=== PATIENT | male | born 1975 | race Caucasian/White ===

== ENCOUNTER 2018-12-25 09:37 | Emergency (ER) | payer MEDICAID, OTHER ==
[~2018-12-25] VITALS: Ht 182.9 cm; Wt 159.1 kg
[2018-12-25] MEDS ORDERED: ketorolac tromethamine 15mg/ml inj. IV ONE (10:15)
--- NOTE | 2018-12-25 10:53 | NUR ---
AMBULATED TO BATHROOMFOR URINE SAMPLE
[2018-12-25 11:09] LABS: BASOPHILS # (AUTO) 0.1 X10'3 (0-0.2); EOSINOPHILS # (AUTO) 0.2 X10'3 (0-0.9); EOSINOPHILS % (AUTO) 1.6 % (0-6); HEMATOCRIT 46.5 % (42.0-52.0); HEMOGLOBIN 15.7 g/dl (14.0-17.9); LYMPHOCYTES # (AUTO) 2.2 X10'3 (1.1-4.8); LYMPHOCYTES % (AUTO) 18.5 % (21-51); MEAN CORPUSCULAR HEMOGLOBIN 30.9 PG (27.0-31.0); MEAN CORPUSCULAR HGB CONC 33.8 g/dL (33.0-36.5); MEAN CORPUSCULAR VOLUME 91.5 FL (78-98); MEAN PLATELET VOLUME 8.7 FL (7.4-10.4); MONOCYTES # (AUTO) 1.1 X10'3 (0-0.9); MONOCYTES % (AUTO) 9.2 % (2-12); NEUTROPHILS # (AUTO) 8.2 X10'3 (1.8-7.7); NEUTROPHILS % (AUTO) 69.7 % (42-75); PLATELET COUNT 217 X10'3 (140-440); RED BLOOD COUNT 5.08 X10'6 (4.70-6.10); RED CELL DISTRIBUTION WIDTH 13.7 % (11.5-14.5); WHITE BLOOD COUNT 11.7 X10'3 (4.5-11.0)
[2018-12-25 11:13] LABS: CLARITY,URINE SLIGHTLY CLOUDY (Clear); COLOR,URINE YELLOW (Yellow); GLUCOSE, URINE NEGATIVE (Neg); KETONES,URINE NEGATIVE (Neg); LEUKOCYTE ESTERASE ,URINE NEGATIVE (Neg); NITRITES, URINE NEGATIVE (Neg); OCCULT BLOOD,URINE SMALL (Neg); PH,URINE 6.5 (4.8-8.0); PROTEIN,URINE NEGATIVE (Neg); UROBILINOGEN,URINE 0.2 E.U/dL (0.2-1.0)
[2018-12-25 11:24] LABS: UA COLLECTION TYPE VOIDED
[2018-12-25 11:28] LABS: ALANINE AMINOTRANSFERASE 103 U/L (12-78); ALBUMIN 3.7 G/DL (3.4-5.0); ALBUMIN/GLOBULIN RATIO 0.9 (1.1-1.5); ALKALINE PHOSPHATASE 118 IU/L (46-116); ANION GAP 8 (8-16); ASPARTATE AMINO TRANSFERASE 58 U/L (10-37); BILIRUBIN,TOTAL 0.8 MG/DL (0.1-1.0); BLOOD UREA NITROGEN 13 MG/DL (7-18); CHLORIDE 107 MMOL/L (99-107); CREATININE 1.44 MG/DL (0.60-1.10); GLUCOSE 110 MG/DL (70-104); POTASSIUM 4.1 MMOL/L (3.5-5.1); SODIUM 141 MMOL/L (135-145); TOTAL CARBON DIOXIDE 26.2 MMOL/L (24-32); TOTAL PROTEIN 7.8 G/DL (6.4-8.2); eGFR 54 ML/MIN
[2018-12-25 11:40] LABS: MUCUS STRANDS MANY /LPF (Neg)
[2018-12-25 11:41] LABS: SQUAMOUS EPITHELIAL CELL,UR FEW /LPF (FEW)
[2018-12-25 11:43] LABS: HYALINE CASTS 0-3 /LPF (NEGATIVE); WBC,URINE 0-4 /HPF (0-4)
[2018-12-25 11:47] LABS: BACTERIA,URINE 2+ /HPF (Neg)
[2018-12-25] MEDS ORDERED: FLO0.4C PO (12:13)
[2018-12-25] MEDS ORDERED: HYDR-3965 PO (12:13)
[2018-12-25] MEDS ORDERED: ONDA4TAB6 PO (12:13)
[2018-12-25] MEDS ORDERED: IBUP-1985 PO (12:13)
[2018-12-25 12:25] VITALS: BP 166/100
== END 2018-12-25 12:26 | disposition home or self-care (01) ==
LOC: ER 09:37
DX: N20.0 Calculus of kidney (principal); Z79.899 Other long term (current) drug therapy
CPT/HCPCS: 36415; 74176; 80053; 81001; 85025; 96374; 99284; J1885